=== PATIENT | male | born 1985 | race Caucasian/White ===

== ENCOUNTER → 2020-06-16 | Outpatient (CLI) | payer OTHER ==
[~2020-06-16] MED LIST: CEPHALEXIN; HYDACE5 PO
== END | disposition home or self-care (01) ==
LOC: LAB SHORT 14:51 → LAB EV 14:51
DX: R05 Cough (principal); Z20.828 Contact with and (suspected) exposure to other viral communicable diseases
CPT/HCPCS: U0003